=== PATIENT | female | born 1965 | race Two or more races ===

== ENCOUNTER 2020-04-08 10:01 | Emergency (ER) | payer MEDICAID ==
[~2020-04-08] VITALS: Ht 157.5 cm; Wt 72.6 kg
[2020-04-08 10:09] VITALS: BP 130/80
--- NOTE | 2020-04-08 10:09 | NUR ---
ED Nurse Note:PT walked in to ed for C/o redness/ bloodshot to right eye x 3 days. reports discomfort/ pain, andblurry vission to right eye.
[2020-04-08] MEDS ORDERED: ERYTHROMYCIN3.5 GM RIGHT EYE (10:13)
--- NOTE | 2020-04-08 10:13 | NUR ---
ED Nurse Note: pt eye acuity is 20/70 on both eyes. pt states she usually wears glasses she hasnt been wearing it due to glasses being lost.
[2020-04-08 10:14] VITALS: BP 125/76
[2020-04-08 10:23] VITALS: BP 122/71
--- NOTE | 2020-04-08 10:23 | NUR ---
ER DISCHARGE NOTE: Patient is cleared to be discharged per ERMD, pt is aox4, on room air, with stable vital signs. pt was given dc and prescription instructions, pt was able to verbalize understanding, pt id band removed. pt is able to ambulate with steady gait. pt took all belongings.
--- NOTE | 2020-04-08 12:21 | Emergency Room Report ---
History of Present Illness General Chief Complaint: Eye Problems Source: Patient Present Illness HPI 55-year-old female with no relevant past medical history here with 1 day of right eye erythema and eyelid crusting. Patient says that she awoke with the symptoms today. Denies any pain on extraocular movements. No blurry vision. No skin changes. No fevers or chills. No neck stiffness. No sick contacts. COVID-19 Screening Contact w/high risk pt: No Experienced COVID-19 symptoms?: No COVID-19 Testing performed COPY WRITER: No Patient History Last Menstrual Period: na Nursing Documentation-H Past Medical History: No History, Except For Review of Systems All Other Systems: negative except mentioned in HPI Physical Exam Vital Signs Date Time Temp Pulse Resp B/P (MAP) Pulse Ox O2 Delivery O2 Flow Rate FiO2 04/08/20 10:06 97.9 72 18 125/76 (92) 98 Room Air Sp02 EP Interpretation: reviewed, normal General Appearance: no apparent distress, alert, non-toxic Head: normocephalic, atraumatic Eyes: right eye other - Mild diffuse conjunctival erythema. No active drainage. Pupils equal and reactive. No pain on extraocular movements; bilateral eye normal inspection, bilateral eye PERRL ENT: hearing grossly normal, normal pharynx, no angioedema, normal voice Neck: full range of motion, supple/symm/no masses Respiratory: chest non-tender, lungs clear, normal breath sounds, speaking full sentences Cardiovascular #1: regular rate, rhythm, no edema Cardiovascular #2: 2+ carotid (R), 2+ carotid (L), 2+ radial (R), 2+ radial (L), 2+ dorsalis pedis (R), 2+ dorsalis pedis (L) Gastrointestinal: normal bowel sounds, non tender, soft, non-distended, no guarding, no rebound Rectal: deferred Musculoskeletal: back normal, normal range of motion, gait/station normal, non- tender Neurologic: alert, motor strength/tone normal, oriented x3, sensory intact, responsive, speech normal Psychiatric: judgement/insight normal, memory normal, mood/affect normal, no suicidal/homicidal ideation Lymphatic: no adenopathy Medical Decision Making Diagnostic Impression: Primary Impression: Eye problem Additional Impression: Conjunctivitis ER Course 55-year-old female with no relevant past medical history here with 1 day of right eye erythema and eyelid crusting. Patient appears to have evidence of conjunctivitis. No signs of corneal abrasion or foreign body. She had normal visual acuity in both eyes. She does not wear contact lenses. She was given a prescription for erythromycin ointment to use for 7 days. We will follow-up with primary care provider and told to come back to the emergency department if she has any worsening symptoms including pain on extraocular movements, skin changes, fevers, chills. She expressed understanding and was discharged. Last Vital Signs Date Time Temp Pulse Resp B/P (MAP) Pulse Ox O2 Delivery O2 Flow Rate FiO2 04/08/20 10:23 98.0 75 19 122/71 98 Room Air Disposition: HOME, SELF-CARE Condition: Stable Scripts Erythromycin Base (ERYTHROMYCIN*) 3.5 Gm Oint...g. 1 APPLIC RIGHT EYE BID, #3.5 GM 0 Refills Prov: Jose Manuel Kaufman M.D. 04/08/20 Referrals: [facility] Patient Instructions: Bacterial Conjunctivitis Additional Instructions: Please follow-up with your primary care doctor in the next 1 to 3 days to discuss this emergency department visit and for reevaluation. If you have any new or worsening symptoms please return to the emergency department for reevaluation. Jose Manuel Kaufman M.D. Apr 08, 2020 12:21
== END 2020-04-08 10:30 | disposition home or self-care (01) ==
LOC: EMR 10:30
DX: H10.9 Unspecified conjunctivitis (principal)
CPT/HCPCS: 99282